=== PATIENT | male | born 1985 | race Two or more races ===

== ENCOUNTER 2016-10-07 22:05 | Emergency (ER) | payer OTHER ==
[2016-10-07 22:15] VITALS: TEMP 99.1
--- NOTE | 2016-10-07 22:44 | EDPHY ---
H & P Stated Complaint: right ear pain HPI/ROS: HPI CHIEF COMPLAINT: Right ear pain HISTORY OF PRESENT ILLNESS: This patient very pleasant 30-year-old male, no significant medical history does not take any daily medications, presents emergency room with right ear pain specifically external ear canal pain ever since swimming in a pool today. He thinks he may have gotten a lot a water there need irritated is inner ear. Denies any fever, chest pain, shortness of breath. Denies drainage from his ear. Denies loss of hearing. He does have pain. Denies pain when he swallows. Denies sore throat. Past Medical History: No significant medical history Past Surgical History: No significant surgical history Social History: Denies daily use drugs alcohol tobacco products Family History: Noncontributory ROS REVIEW OF SYSTEMS: A comprehensive 10 point review of systems is otherwise negative aside from elements mentioned in the history of present illness. Exam Constitutional appears well nontoxic, triage nursing summary reviewed, vital signs reviewed, awake/alert. Eyes normal conjunctivae and sclera, EOMI, PERRLA. HENT left ear canals normal, right ear canal is inflamed and erythematous, no drainage, no discharge, no cottage cheese substance, the right TM is intact but erythematous, normal inspection, atraumatic, moist mucus membranes, no epistaxis , neck supple/ no meningismus, no raccoon eyes. Respiratory clear to auscultation bilaterally, normal breath sounds, no respiratory distress, no wheezing. Cardiovascular rate normal, regular rhythm, no murmur, no edema, distal pulses normal. Gastrointestinal soft, non-tender, no rebound, no guarding, normal bowel sounds, no distension, no pulsatile mass. Genitourinary no CVA tenderness. Musculoskeletal no midline vertebral tenderness, full range of motion, no calf swelling, no tenderness of extremities, no meningismus, good pulses, neurovascularly intact. Skin pink, warm, & dry, no rash, skin atraumatic. Neurologic awake, alert and oriented x 3, AAOx3, moves all 4 extremities equally, motor intact, sensory intact, CN II-XII intact, normal cerebellar, normal vision, normal speech. Psychiatric normal mood/affect. Heme/Lymph/Immune no lymphadenopathy. Differential Diagnosis: Includes but is not limited to in a particular order, otitis externa, otitis media, ear canal and eardrum irritation from swimming. Medical Decision Making: This patient has no mastoid tenderness on exam. There is no cauliflower ear. There is no significant drainage from the ear canal. Will place the patient on ibuprofen for pain control, and antibiotic ear drops. ENT referral. He understands return emergency room if develops any worsening symptoms questions or concerns Source: Patient - Medical/Surgical History Hx Asthma: No Hx Chronic Respiratory Disease: No Hx Diabetes: No Hx Cardiac Disease: No Hx Renal Disease: No Hx Cirrhosis: No Hx Alcoholism: No Hx HIV/AIDS: No Hx Splenectomy or Spleen Trauma: No - Social History Smoking Status: Never smoked Constitutional: Initial Vital Signs Temperature (C) 37.3 C 10/07/16 22:13 Heart Rate 77 10/07/16 22:13 Respiratory Rate 20 10/07/16 22:13 Blood Pressure 133/86 H 10/07/16 22:13 O2 Sat (%) 94 10/07/16 22:13 Allergies/Adverse Reactions: No Known Allergies Allergy (Unverified 10/07/16 22:13) Home Medications: Medication Instructions Recorded Ciprofloxacin/Hydrocortisone 10 ml OT TID #1 drops.susp 10/07/16 [Cipro Hc Otic Suspension] Ibuprofen [Motrin (*)] 800 mg PO Q6-8PRN #10 tab 10/07/16 Departure - Departure Disposition: Home, Routine, Self-Care Clinical Impression: Otitis externa Qualifiers: Otitis externa type: unspecified type Chronicity: acute Laterality: right Qualified Code(s): H60.501 - Unspecified acute noninfective otitis externa, right ear Condition: Good Instructions: Otitis Externa (ED) Referrals: Michael Lewis MD [Primary Care Provider] - As per Instructions Melissa Nagy MD [Medical Doctor] - As per Instructions Prescriptions: Ciprofloxacin/Hydrocortisone [Cipro Hc Otic Suspension] 10 ml OT TID #1 drops.susp Ibuprofen [Motrin (*)] 800 mg PO Q6-8PRN #10 tab
[2016-10-07 23:13] VITALS: BP 133/73; PULSE 75; RESP 16; O2SAT 93
== END 2016-10-07 23:11 | disposition home or self-care (01) ==
DX: H60.501 Unspecified acute noninfective otitis externa, right ear (principal)